=== PATIENT | male | born 1975 | race Caucasian/White ===

== ENCOUNTER 2020-05-30 08:59 | Outpatient (CLI) | payer OTHER, SELFPAY ==
--- NOTE | 2020-05-30 | ECG_ITS ---
Measurements Intervals [place] Rate: 61 P: 28 SC: 185 QRS: -26 QRSD: 102 T: -6 QT: 385 QTc: 391 Interpretive Statements SINUS RHYTHM INCOMPLETE RIGHT BUNDLE BRANCH BLOCK VOLTAGE CRITERIA FOR LVH BORDERLINE ST-T WAVE ABNORMALITY- INFERIOR LEADS BORDERLINE ECG Electronically Signed On 05-30-2020 9:33:24 CDT by Naldo Leslie D.O.
[2020-05-30 09:43] LABS: Basophils Absolute Auto 0.1 K/mm3 (0.0-0.1); Basophils Percent Auto 0.6 % (0.2-1.2); Eosinophils Absolute Auto 0.2 K/mm3 (0-0.3); Eosinophils Percent Auto 2.3 % (0-4.4); Hematocrit 46.2 % (42.0-52.0); Hemoglobin 16.4 g/dL (14.0-18.0); Immature Granulocyte Absolute 0.04 K/mm3 (0.00-0.031); Immature Granulocyte Percent A 0.5 % (0-0.5); Lymphocytes Absolute Auto 2.08 K/mm3 (0.9-3.2); Lymphocytes Percent Auto 23.8 % (18.3-44.2); Mean Corpuscular HGB Conc 35.5 g/dl (32-36); Mean Corpuscular Hemoglobin 32.3 pg (26-34); Mean Corpuscular Volume 90.9 fl (80-100); Monocytes Absolute Auto 0.7 K/mm3 (0.1-0.6); Neutrophils Absolute Auto 5.7 K/mm3 (1.3-6.7); Neutrophils Percent Auto 64.8 % (45.5-73.1); Platelet Count Result 234 k/mm3 (150-375); Red Blood Count 5.08 M/mm3 (4.6-6.20); Red Cell Distribution Width 12.4 % (11.5-14.5); White Blood Count 8.7 K/mm3 (4.5-10.0)
[2020-05-30 10:02] LABS: Alanine Aminotransferase 38 U/L (4-50); Albumin Level 4.8 g/dL (3.5-5.1); Alkaline Phosphatase 45 U/L (38-126); Anion Gap 7 mmol/L (8-16); Aspartate Amino Transferase 37 U/L (17-59); Bilirubin,Total 0.5 mg/dL (0.2-1.3); Blood Urea Nitrogen 19 mg/dL (9-20); Calcium 9.5 mg/dL (8.4-10.2); Carbon Dioxide 28 mmol/L (22-30); Chloride 105 mmol/L (98-107); Cholesterol 212 mg/dL (0-200); Estimated Glomerular Filt Rate > 60; Glucose 107 mg/dL (75-110); HDL Direct 43 mg/dL; Potassium 4.3 mmol/L (3.4-5.0); Sodium 140 mmol/L (137-145); Triglycerides 73 mg/dL (<150)
[2020-05-30 10:13] LABS: LDL Cholesterol Direct 144 mg/dL
[2020-05-30 10:33] LABS: Prostate Specific Antigen 0.9 ng/mL (< OR = 4.0)
== END 2020-05-30 09:00 | disposition home or self-care (01) ==
PROVIDERS: PCP Family Medicine; Visit Provider Nurse Practitioner Family
DX: I10 Essential (primary) hypertension (principal); Z13.1 Encounter for screening for diabetes mellitus; Z13.220 Encounter for screening for lipoid disorders
CPT/HCPCS: 36415; 80053; 80061; 84153; 84443; 85025; 93005

== ENCOUNTER 2020-07-04 08:38 | Outpatient (CLI) | payer OTHER, SELFPAY ==
--- NOTE | 2020-07-04 09:01 | ECHO_ITS ---
Patient Info Name: Pascual Marsh Age: 45 years : 1975 Gender: Male Ht: 72 in Wt: 225 lbs BSA: 2.30 m2 HR: 73 bpm BP: 148 / 93 mmHg Technical Quality: Good Exam Date: 07/04/2020 9:19 AM Exam Location: [facility] Patient Status: Outpatient Admit Date: 07/04/2020 Staff Ordering Physician: Billie Ferrer NP Director Custom: Irina Davis RDCS Attending Provider: Billie Ferrer NP Referring Physician: Nabil NEELY; Exam Type: CA echo doppler color flow Study Info Indications - ABN EKG Complete two-dimensional, color flow and Doppler transthoracic echocardiogram is performed. Summary 1. Complete two-dimensional, color flow and Doppler transthoracic echocardiogram is performed. 2. Left ventricular chamber dimension is normal. 3. Left ventricular systolic function is normal, estimated at 60-65%. 4. There is mildly increased left ventricular wall thickness. 5. The left ventricular diastolic function is grade I diastolic dysfunction. 6. E/e' 8 is minimally elevated. 7. Global longitudinal strain is normal at -19.2%. 8. There is trace mitral valve regurgitation. 9. There is trace tricuspid valve regurgitation. 10. No pulmonary hypertension, estimated pulmonary arterial systolic pressure is 28 mmHg. 11. There is trace pulmonic regurgitation. Left Ventricle E/e' 8 is minimally elevated. Global longitudinal strain is normal at -19.2%. Left ventricular chamber dimension is normal. Left ventricular systolic function is normal, estimated at 60-65%. There is mildly increased left ventricular wall thickness. The left ventricular diastolic function is grade I diastolic dysfunction. Right Ventricle Right ventricular chamber dimension is normal. Right ventricular systolic function is normal. Left Atria Left atrial chamber dimension is normal. Right Atria Right atrial chamber dimension is normal. Aortic Valve The aortic valve is trileaflet. There is no aortic valve stenosis. There is no aortic valve regurgitation. Pulmonic Valve There is trace pulmonic regurgitation. Mitral Valve There is no mitral valve stenosis. There is trace mitral valve regurgitation. Tricuspid Valve There is trace tricuspid valve regurgitation. No pulmonary hypertension, estimated pulmonary arterial systolic pressure is 28 mmHg. Pericardium/Pleural There is no pericardial effusion. Inferior Vena Cava Normal inferior vena cava with >50% collapse upon inspiration consistent with normal right atrial pressure, 5 mmHg. Aorta The aortic root size at the sinus of Valsalva is normal. Left Ventricular Outflow Tract Name Value Normal LVOT 2D LVOT Diameter 2.2 cm LVOT Doppler LVOT Peak Gradient 5 mmHg LVOT Mean Gradient 3 mmHg LVOT VTI 22 cm LVOT VTI/AV VTI Ratio 0.9 LVOT Stroke Volume 85 ml LVOT CO 17.9 l/min LVOT CI 7.8 l/min/m2 Pulmonic Valve
--- NOTE | 2020-07-04 09:50 | EST_ITS ---
Patient Info Name: Pascual Marsh Age: 45 years : 1975 Gender: Male Ht: 72 in Wt: 225 lbs BSA: 2.30 m2 Exam Date: 07/04/2020 10:09 AM Exam Location: [facility] Patient Status: Outpatient Admit Date: 07/04/2020 Staff Ordering Physician: Billie Ferrer NP Attending Provider: Billie Ferrer NP Exercise Technologist: Apple Mejía CT Exercise Physician: Naldo Leslie DO Exam Type: CA stress test treadmill Study Info An exercise stress test was performed. Summary 1. 1. Negative Manuel exercise stress test for ischemic ST changes by ECG criteria. 2. 2. Good functional capacity, achieving 11 METs of workload. 3. 3. Hypertensive response to exercise. 4. 4. Appropriate HR response to exercise. 5. 5. Appropriate HR recovery at 1 minute post exercise. 6. 6. No imaging with stress testing. 7. 7. Patient informed of the above results. Protocol: Manuel Stress ECG Details Stage: REST Duration (min): 3 min : 1 sec Speed (mph): 0.0 Grade (%): 0 HR (bpm): 74 SBP (mmHg): 139 DBP (mmHg): 95 METS: --- Stage: REST Duration (min): 11 min : 16 sec Speed (mph): 0.0 Grade (%): 0 HR (bpm): 73 SBP (mmHg): 139 DBP (mmHg): 95 METS: --- Stage: STAGE 1 Duration (min): 1 min : 0 sec Speed (mph): 1.7 Grade (%): 10 HR (bpm): 94 SBP (mmHg): 139 DBP (mmHg): 95 METS: --- Stage: STAGE 1 Duration (min): 2 min : 0 sec Speed (mph): 1.7 Grade (%): 10 HR (bpm): 101 SBP (mmHg): 139 DBP (mmHg): 95 METS: --- Stage: STAGE 1 Duration (min): 3 min : 0 sec Speed (mph): 1.7 Grade (%): 10 HR (bpm): 100 SBP (mmHg): 176 DBP (mmHg): 98 METS: --- Stage: STAGE 2 Duration (min): 1 min : 0 sec Speed (mph): 2.5 Grade (%): 12 HR (bpm): 117 SBP (mmHg): 176 DBP (mmHg): 98 METS: --- Stage: STAGE 2 Duration (min): 2 min : 0 sec Speed (mph): 2.5 Grade (%): 12 HR (bpm): 157 SBP (mmHg): 197 DBP (mmHg): 104 METS: --- Stage: STAGE 2 Duration (min): 3 min : 0 sec Speed (mph): 2.5 Grade (%): 12 HR (bpm): 147 SBP (mmHg): 197 DBP (mmHg): 104 METS: --- Stage: STAGE 3 Duration (min): 1 min : 0 sec Speed (mph): 3.4 Grade (%): 14 HR (bpm): 149 SBP (mmHg): 213 DBP (mmHg): 104 METS: --- Stage: STAGE 3 Duration (min): 2 min : 0 sec Speed (mph): 3.4 Grade (%): 14 HR (bpm): 157 SBP (mmHg): 213 DBP (mmHg): 104 METS: --- Stage: STAGE 3 Duration (min): 3 min : 0 sec Speed (mph): 3.4 Grade (%): 14 HR (bpm): 164 SBP (mmHg): 220 DBP (mmHg): 117 METS: --- Stage: STAGE 4 Duration (min): 0 min : 30 sec Speed (mph): 4.2 Grade (%): 16 HR (bpm): 169 SBP (mmHg): 220 DBP (mmHg): 117 METS: --- Stage: RECOVERY Duration (min): 0 min : 29 sec Speed (mph):
== END 2020-07-04 08:39 | disposition home or self-care (01) ==
PROVIDERS: PCP Family Medicine; Visit Provider Nurse Practitioner Family
DX: R94.31 Abnormal electrocardiogram [ECG] [EKG] (principal)
CPT/HCPCS: 93017; 93306

== ENCOUNTER 2023-08-25 07:21 | Day surgery (SDC) | payer OTHER, SELFPAY ==
[2023-06-23 11:40] VITALS: BMI 33.6
[2023-08-17 14:16] VITALS: BMI 32.8
--- NOTE | 2023-08-24 11:42 | PM.HPGS ---
History of Present Illness History of Present Illness Consent: Risks, benefits, and alternatives have been discussed and questions answered. Patient agrees to proceed with procedure. Chief complaint: other fecal abnormalities Narrative: Pascual Marsh is a 48 year old male Referred for colonoscopy due to a positive Cologuard test. Review of Systems Review of Systems: All systems reviewed & are unremarkable except as noted in HPI and below PMFSH Past Medical History Medical History BMI 31.0-31.9,adult BMI 33.0-33.9,adult BMI 34.0-34.9,adult Chest discomfort Dietary counseling and surveillance (07/28/18) Essential (primary) hypertension Family history of [place] (myocardial infarction) Light-headed feeling Near syncope Routine physical examination Screening for prostate cancer Screening, lipid Family History Family History Father Family history of coronary artery disease Family history of cardiovascular disease COVID-19 Heart disease Mother Hypertension Sibling No problems noted. Social History Social History Smoking status: Never smoker Tobacco type: cigarettes Second hand tobacco smoke exposure: No Smoking end date: 03/09/13 Alcohol intake: current Drinks per week: 10 Substance use: never Substance use type: does not use Do You Feel Safe in your Home?: Yes Lack of Transportation: No Lack of Food: Never True Current Housing: I Have Housing Concerned About Future Housing: No Difficulty Paying Gas/Electric Bills: No Difficulty Paying for Meds: No Currently Unemployed: No Education: Bachelor's Degree Difficulty w/ Childcare or Family Care: No Living arrangements: with family Occupation/Education: occupation Additional occupation/education comments: Sales Gender identity (if verbalized by the patient): Male Spiritual care concerns: No Meds Home Medications and Allergies Home Medications Medication Instructions Recorded Confirmed Type carvedilol 12.5 mg tablet See Rx Instructions .Route 01/09/23 08/25/23 Rx .COMPLEX #180 tabs amlodipine 10 mg tablet See Rx Instructions .Route 01/19/23 08/25/23 Rx .COMPLEX #90 tabs escitalopram oxalate 5 mg tablet 5 mg PO DAILY #90 tabs 04/17/23 08/25/23 Rx (Lexapro) lisinopril 40 mg tablet See Rx Instructions .Route 05/19/23 08/25/23 Rx .COMPLEX #90 tabs Allergies Allergy/AdvReac Type Severity Reaction Status Date / Time No Known Allergies Allergy Verified 08/25/23 07:48 Exam Resp: Auscultation: clear to auscultation bilaterally Cardio: Rate: regular rate Rhythm: regular rhythm GI: GI Palp: Yes Soft to palpation and No Tenderness to palpation present (GI) Assessment and Plan Assessment and plan (1) Positive colorectal cancer screening using Cologuard test: Code(s): R19.5 - Other fecal abnormalities Status: Acute Assessment and Plan: Colonoscopy with possible biopsy or polypectomy or cautery or injection of substances.
--- NOTE | 2023-08-24 15:25 | WPDANESEPPF ---
Anes - Initial Pre Proc Eval Procedure: Operation Date: 08/25/23 09:00 Proposed Procedures p Diagnostic Colonoscopy - Refugio Rome MD Date/Time: 08/24/23 15:25 Surgeon: Refugio Rome MD Pre Op Diagnosis: other fecal abnormalities Patient Data Age: 48 Gender: M Height: 1.83 m Weight: 110 kg Allergies Allergy/AdvReac Type Severity Reaction Status Date / Time No Known Allergies Allergy Verified 08/25/23 07:48 Home Medications Medication Instructions Recorded Confirmed Type carvedilol 12.5 mg tablet See Rx Instructions .Route 01/09/23 08/25/23 Rx .COMPLEX #180 tabs amlodipine 10 mg tablet See Rx Instructions .Route 01/19/23 08/25/23 Rx .COMPLEX #90 tabs escitalopram oxalate 5 mg tablet 5 mg PO DAILY #90 tabs 04/17/23 08/25/23 Rx (Lexapro) lisinopril 40 mg tablet See Rx Instructions .Route 05/19/23 08/25/23 Rx .COMPLEX #90 tabs Patient hx anesthesia problems: none Family hx anesthesia problems: none Results Review: All pre-operative results and documents have been reviewed as part of the pre-operative evaluation. [facility] Past Medical History Medical History BMI 31.0-31.9,adult BMI 33.0-33.9,adult BMI 34.0-34.9,adult Chest discomfort Dietary counseling and surveillance (07/28/18) Essential (primary) hypertension Family history of [place] (myocardial infarction) Light-headed feeling Near syncope Routine physical examination Screening for prostate cancer Screening, lipid Family History Family History Father Family history of coronary artery disease Family history of cardiovascular disease COVID-19 Heart disease Mother Hypertension Sibling No problems noted. Social History Social History (Updated 08/25/23 @ 08:45 by Norris Montana DO) Smoking status: Never smoker Tobacco type: cigarettes Second hand tobacco smoke exposure: No Smoking end date: 03/09/21 Alcohol intake: current Drinks per week: 10 Alcohol use details: 2-3 drinks about 3-4x a week Substance use: never Substance use type: does not use Do You Feel Safe in your Home?: Yes Lack of Transportation: No Lack of Food: Never True Current Housing: I Have Housing Concerned About Future Housing: No Difficulty Paying Gas/Electric Bills: No Difficulty Paying for Meds: No Currently Unemployed: No Education: Bachelor's Degree Difficulty w/ Childcare or Family Care: No Living arrangements: with family Occupation/Education: occupation Additional occupation/education comments: Sales Gender identity (if verbalized by the patient): Male Spiritual care concerns: No Anes - Eval Final PreProcedure Day of Procedure 08/24/23 15:25 Patient weight: obese Heart: regular rate and rhythm Lungs: clear to auscultation Airway: Mallampati scale class II Neurological: alert and oriented Last oral intake: >/= 8 hours ASA classification: III Emergent: no Anesthetic plan: proceed Anesthesia type and monitoring: general GIVS and standard monitoring Results Review: All pre-operative results and documents have been reviewed as part of the pre-operative evaluation. Informed Consent: The patient's anesthetic plan and its attendant risks and benefits were discussed with the patient/family/POA. Questions were solicited and answers provided to the satisfaction of the patient/family/POA.
[2023-08-25 07:53] VITALS: BP 131/94; PULSE 78; RESP 18; TEMP 36.8; O2SAT 100; BMI 31.9
[2023-08-25] MEDS: LACTATED RINGERS 1,000 ML 150 ML IV CONT (08:08)
[2023-08-25 09:05] VITALS: BP 109/85; PULSE 65; RESP 16; O2SAT 98
[2023-08-25 09:15] VITALS: BP 129/96; PULSE 62; RESP 18; O2SAT 100
[2023-08-25 09:25] VITALS: BP 127/96; PULSE 63; RESP 18; O2SAT 99
--- NOTE | 2023-08-25 11:57 | WPDANESPN ---
Anes - Prog Note Post-Op Date/Time: 08/25/23 11:57 Cardiovascular status: normal Respiratory status: normal Airway patency: baseline Mental status: baseline Post-Op hydration status: normal Vital Signs: Last Vital Signs Temp 36.8 C 08/25/23 07:53 Pulse 63 08/25/23 09:25 Resp 18 08/25/23 09:25 BP 127/96 H 08/25/23 09:25 Pulse Ox 99 08/25/23 09:25 O2 Del Method Room Air 08/25/23 09:25 Pain Score (VAS): 0 I/O: Intake & Output 08/24/23 08/25/23 08/25/23 23:59 07:59 15:59 Intake Total 350 Balance 350 Post-procedural complaints: none Patient Feedback: Patient satisfied with anesthetic care. Other Findings: Patient vital signs back to baseline. Patient denies nausea and vomiting. Patient's pain under control. Patient OK for discharge.
== END 2023-08-25 09:50 | disposition home or self-care (01) ==
PROVIDERS: PCP Family Medicine; Visit Provider Internal Medicine Gastroenterology
PROC: 0DJD8ZZ Inspection of Lower Intestinal Tract, Via Natural or Artificial Opening Endoscopic (ICD-10-PCS; CPT 45378; principal; 2023-08-25 09:00)
DX: Z12.11 Encounter for screening for malignant neoplasm of colon (principal); D12.8 Benign neoplasm of rectum; K64.8 Other hemorrhoids; R19.5 Other fecal abnormalities
CPT/HCPCS: 45380

== ENCOUNTER 2023-08-26 08:08 | Outpatient (NON) | payer OTHER, SELFPAY | END 2023-08-26 08:09 | disposition home or self-care (01) | LOC: ANHLAB 08:09 | PROVIDERS: PCP Family Medicine; Visit Provider Internal Medicine Gastroenterology | DX: Z12.11 Encounter for screening for malignant neoplasm of colon (principal) | CPT/HCPCS: 88305 ==